=== PATIENT | female | born 1970 | race African-American/Black ===

== ENCOUNTER 2020-09-18 21:33 | Inpatient (IN) | payer BC, OTHER ==
[2020-09-18 23:20] LABS: BASO % 0.7 % (0-2.0); EOS % 4.4 % (0-4.5); HEMATOCRIT 38.1 % (32.4-45.2); HEMOGLOBIN 12.2 GM/dL (10.7-15.3); LYMPH % 22.9 % (8-40); MCH 23.8 pg (25.7-33.7); MEAN CELL VOLUME 74.4 fl (80-96); MEAN PLT VOLUME 8.6 fl (7.5-11.1); MONO % 9.1 % (3.8-10.2); NEUT % 62.9 % (42.8-82.8); PLATELET COUNT 220 K/MM3 (134-434); RBC 5.12 M/mm3 (3.60-5.2); RDW 16.1 % (11.6-15.6); WHITE BLOOD COUNT 6.4 K/mm3 (4.0-10.0)
[2020-09-18 23:30] LABS: INR 1.21 (0.83-1.09); PROTHROMBIN TIME (PATIENT) 14.8 SEC (9.7-13.0)
[2020-09-18 23:33] LABS: ACTIVATED PTT 30.6 SECONDS (25.2-36.5)
[2020-09-18 23:41] LABS: CALCIUM 9.5 mg/dL (8.5-10.1)
[2020-09-18 23:42] LABS: ALBUMIN 3.8 g/dl (3.4-5.0); BLOOD UREA NITROGEN 14.2 mg/dL (7-18)
[2020-09-18 23:45] LABS: CREATININE 1.3 mg/dL (0.55-1.3)
[2020-09-18 23:46] LABS: BILIRUBIN,TOTAL 0.5 mg/dL (0.2-1); TOT PROT 8.2 g/dl (6.4-8.2)
[2020-09-19] MEDS ORDERED: SENNOSIDES 8.6MG TABLET (FP) PO PRN (02:19)
[2020-09-19] MEDS ORDERED: DOCUSATE SODIUM 100 MG CAPSULE (FP) PO PRN (02:19)
[2020-09-19] MEDS ORDERED: levoFLOXacin 750 MG TABLET PO SCH (06:00)
[2020-09-19 07:13] LABS: BASO % 0.6 % (0-2.0); EOS % 5.3 % (0-4.5); HEMATOCRIT 36.4 % (32.4-45.2); HEMOGLOBIN 11.8 GM/dL (10.7-15.3); LYMPH % 21.8 % (8-40); MCHC 32.3 g/dl (32.0-36.0); MEAN CELL VOLUME 74.2 fl (80-96); MEAN PLT VOLUME 8.3 fl (7.5-11.1); MONO % 11.1 % (3.8-10.2); NEUT % 61.2 % (42.8-82.8); PLATELET COUNT 199 K/MM3 (134-434)
[2020-09-19 07:31] LABS: ALBUMIN 3.4 g/dl (3.4-5.0); BLOOD UREA NITROGEN 12.1 mg/dL (7-18)
[2020-09-19 07:32] LABS: CALCIUM 9.5 mg/dL (8.5-10.1)
[2020-09-19 07:33] LABS: MAGNESIUM 2.1 mg/dL (1.8-2.4)
[2020-09-19 07:36] LABS: CREATININE 1.2 mg/dL (0.55-1.3); PHOSPHOROUS 4.8 mg/dL (2.5-4.9)
[2020-09-19 07:37] LABS: BILIRUBIN,TOTAL 0.6 mg/dL (0.2-1); TOT PROT 7.2 g/dl (6.4-8.2)
[2020-09-19 07:38] LABS: CHOLESTEROL 208 mg/dL (50-200)
[2020-09-19 07:39] LABS: TRIGLYCERIDES 78 mg/dL (0-150)
[2020-09-19 07:40] LABS: LDL CHOLESTEROL (ONLY SJRH) 112 mg/dL (5-100)
[2020-09-19 07:41] LABS: HDL CHOLESTEROL 67 mg/dL (40-60)
[2020-09-19] MEDS ORDERED: HYDROCHLOROTHIAZIDE 12.5 MG CAPSULE (FP) PO SCH ×2 (10:00→22:00)
[2020-09-19] MEDS ORDERED: DOXYCYCLINE HYCLATE 100 MG CAPSULE PO SCH (10:00)
[2020-09-19] MEDS ORDERED: ENOXAPARIN NA (PORCINE) 40 MG/0.4 ML DISP.SYRIN SQ SCH ×2 (10:00)
[2020-09-19] MEDS ORDERED: LOSARTAN POTASSIUM 50 MG TABLET PO SCH ×2 (10:00→22:00)
[2020-09-19] MEDS ORDERED: LOSARTAN POTASSIUM 50 MG TABLET ONE (10:51)
[2020-09-19] MEDS ORDERED: DOXYCYCLINE HYCLATE 100 MG CAPSULE PO ONE (10:51)
[2020-09-19] MEDS ORDERED: PREGABALIN 100 MG CAPSULE ONE (10:51)
[2020-09-19] MEDS ORDERED: ENOXAPARIN NA (PORCINE) 40 MG/0.4 ML DISP.SYRIN SQ ONE (10:52)
[2020-09-19] MEDS: PREGABALIN 100 MG CAPSULE PO SCH ×2 (11:08→21:20)
[2020-09-19] MEDS: KETOCONAZOLE 2% CREAM - 60GM TUBE TP SCH (13:54)
[2020-09-20 08:32] LABS: HEMATOCRIT 35.6 % (32.4-45.2); HEMOGLOBIN 11.5 GM/dL (10.7-15.3); MCH 23.9 pg (25.7-33.7); MCHC 32.3 g/dl (32.0-36.0); MEAN CELL VOLUME 74.1 fl (80-96); MEAN PLT VOLUME 8.2 fl (7.5-11.1); PLATELET COUNT 190 K/MM3 (134-434); RBC 4.81 M/mm3 (3.60-5.2); RDW 16.1 % (11.6-15.6); WHITE BLOOD COUNT 4.5 K/mm3 (4.0-10.0)
[2020-09-20 08:51] LABS: CALCIUM 9.1 mg/dL (8.5-10.1)
[2020-09-20 08:52] LABS: ALBUMIN 3.4 g/dl (3.4-5.0); BLOOD UREA NITROGEN 13.1 mg/dL (7-18)
[2020-09-20] MEDS ORDERED: LIDOCAINE HCL 2% (20ML MULTI-DOSE VIAL) ONE (08:53)
[2020-09-20 08:55] LABS: CREATININE 1.2 mg/dL (0.55-1.3)
[2020-09-20 08:57] LABS: TOT PROT 7.2 g/dl (6.4-8.2)
[2020-09-20] MEDS: PREGABALIN 100 MG CAPSULE PO SCH ×2 (09:10→21:55)
[2020-09-20] MEDS ORDERED: ONDANSETRON 4 MG/2 ML VIAL IVPUSH PRN ×2 (09:19→11:37)
[2020-09-20] MEDS ORDERED: PROMETHAZINE HCL 25 MG/1 ML VIAL IVPUSH PRN ×2 (09:19→11:37)
[2020-09-20] MEDS ORDERED: MIDAZOLAM HCL 2 MG/2 ML SINGLE DOSE VIAL ONE ×2 (09:28→09:53)
[2020-09-20] MEDS ORDERED: LACTATED RINGERS SOLUTION 1,000 ML IV SCH ×2 (09:30→11:37)
[2020-09-20] MEDS ORDERED: LIDOCAINE HCL 2% (50ML VIAL) NR ONE (09:55)
[2020-09-20] MEDS ORDERED: ceFAZolin SODIUM 1 GM VIAL ONE (09:59)
[2020-09-20] MEDS: KETOCONAZOLE 2% CREAM - 60GM TUBE TP SCH (10:00)
[2020-09-20] MEDS ORDERED: BACITRACIN 50,000 UNITS VIAL NR ONE (10:08)
[2020-09-20] MEDS ORDERED: KETOROLAC TROMETHAMINE 30 MG/1 ML VIAL ONE (10:12)
[2020-09-20] MEDS ORDERED: ceFAZolin SODIUM 1 GM VIAL IVPB ONE (10:18)
[2020-09-20] MEDS ORDERED: METOPROLOL TARTRATE 5 MG/5 ML VIAL ONE (10:20)
[2020-09-20] MEDS ORDERED: BUPIVACAINE HCL/PF 0.5% (5 MG/ML) 30 ML VIAL IJ ONE ×2 (10:47)
[2020-09-20] MEDS ORDERED: SENNOSIDES 8.6MG TABLET (FP) PO PRN (11:37)
[2020-09-20] MEDS ORDERED: DOCUSATE SODIUM 100 MG CAPSULE (FP) PO PRN (11:37)
[2020-09-20] MEDS: LOSARTAN POTASSIUM 50 MG TABLET PO SCH (21:55)
[2020-09-20] MEDS ORDERED: HYDROCHLOROTHIAZIDE 12.5 MG CAPSULE (FP) PO SCH (22:00)
[2020-09-20] MEDS ORDERED: ACETAMINOPHEN 1000 MG/100 ML VIAL (NON FORMULARY) IVPB ONE (23:19)
[2020-09-21 08:28] LABS: HEMOGLOBIN 11.4 GM/dL (10.7-15.3); MCH 24.2 pg (25.7-33.7); MCHC 32.5 g/dl (32.0-36.0); MEAN CELL VOLUME 74.3 fl (80-96); MEAN PLT VOLUME 8.2 fl (7.5-11.1); PLATELET COUNT 195 K/MM3 (134-434); RBC 4.72 M/mm3 (3.60-5.2); RDW 16.1 % (11.6-15.6); WHITE BLOOD COUNT 3.8 K/mm3 (4.0-10.0)
[2020-09-21 08:47] LABS: ALBUMIN 3.1 g/dl (3.4-5.0); CALCIUM 8.6 mg/dL (8.5-10.1)
[2020-09-21 08:48] LABS: BLOOD UREA NITROGEN 15.5 mg/dL (7-18)
[2020-09-21 08:50] LABS: CREATININE 1.2 mg/dL (0.55-1.3)
[2020-09-21 08:52] LABS: BILIRUBIN,TOTAL 0.6 mg/dL (0.2-1); TOT PROT 6.6 g/dl (6.4-8.2)
[2020-09-21] MEDS: PREGABALIN 100 MG CAPSULE PO SCH ×2 (10:55→21:39)
[2020-09-21] MEDS ORDERED: ACETAMINOPHEN 325 MG TABLET (FP) PO ONE (17:54)
[2020-09-21] MEDS: LOSARTAN POTASSIUM 50 MG TABLET PO SCH (21:39)
[2020-09-21 23:44] VITALS: BMI 65.2
[2020-09-22 08:23] LABS: HEMATOCRIT 33.3 % (32.4-45.2); MCH 24.3 pg (25.7-33.7); MCHC 33.1 g/dl (32.0-36.0); MEAN CELL VOLUME 73.5 fl (80-96); MEAN PLT VOLUME 8.1 fl (7.5-11.1); PLATELET COUNT 201 K/MM3 (134-434); RBC 4.53 M/mm3 (3.60-5.2); RDW 16.1 % (11.6-15.6); WHITE BLOOD COUNT 4.9 K/mm3 (4.0-10.0)
[2020-09-22 08:48] LABS: CALCIUM 8.7 mg/dL (8.5-10.1)
[2020-09-22 08:49] LABS: ALBUMIN 3.2 g/dl (3.4-5.0); BLOOD UREA NITROGEN 15.7 mg/dL (7-18)
[2020-09-22 08:52] LABS: CREATININE 1.1 mg/dL (0.55-1.3)
[2020-09-22 08:54] LABS: BILIRUBIN,TOTAL 0.5 mg/dL (0.2-1); TOT PROT 6.8 g/dl (6.4-8.2)
[2020-09-22] MEDS: PREGABALIN 100 MG CAPSULE PO SCH ×2 (10:05→21:42)
[2020-09-22] MEDS: ACETAMINOPHEN 325 MG TABLET (FP) PO PRN ×2 (13:57→21:47)
[2020-09-22] MEDS: LOSARTAN POTASSIUM 50 MG TABLET PO SCH (21:45)
[2020-09-23 07:43] LABS: HEMATOCRIT 32.8 % (32.4-45.2); HEMOGLOBIN 10.8 GM/dL (10.7-15.3); MCH 24.2 pg (25.7-33.7); MCHC 33.1 g/dl (32.0-36.0); MEAN CELL VOLUME 73.2 fl (80-96); PLATELET COUNT 208 K/MM3 (134-434); RBC 4.48 M/mm3 (3.60-5.2); RDW 16.2 % (11.6-15.6); WHITE BLOOD COUNT 4.7 K/mm3 (4.0-10.0)
[2020-09-23 07:48] LABS: ALBUMIN 3.2 g/dl (3.4-5.0); BLOOD UREA NITROGEN 15.5 mg/dL (7-18); CALCIUM 8.8 mg/dL (8.5-10.1)
[2020-09-23 07:52] LABS: CREATININE 1.1 mg/dL (0.55-1.3)
[2020-09-23 07:53] LABS: BILIRUBIN,TOTAL 0.5 mg/dL (0.2-1); TOT PROT 6.8 g/dl (6.4-8.2)
[2020-09-23] MEDS: PREGABALIN 100 MG CAPSULE PO SCH (09:39)
[2020-09-23] MEDS ORDERED: FUROSEMIDE 20 MG TABLET (FP) PO SCH (10:00)
[2020-09-23] MEDS: ACETAMINOPHEN 325 MG TABLET (FP) PO PRN (11:27)
[2020-09-23 14:11] VITALS: BP 117/88; PULSE 85; TEMP 98.2
== END 2020-09-23 15:27 | disposition home or self-care (01) | DRG 504 ==
LOC: JER 21:33 → JERBED 22:48 → J6S 09-19 11:24
PROVIDERS: ADMIT Hospitalist; ATTEND Internal Medicine
PROC: 0SRQ0JZ Replacement of Left Toe Phalangeal Joint with Synthetic Substitute, Open Approach (ICD-10-PCS; 2020-09-20)
PROC: 0Y6U0Z3 Detachment at Left 3rd Toe, Low, Open Approach (ICD-10-PCS; principal; 2020-09-20 09:30)
DX: M86.8X7 Other osteomyelitis, ankle and foot (principal); L97.528 Non-pressure chronic ulcer of other part of left foot with other specified severity; Z68.44 Body mass index [BMI] 60.0-69.9, adult; M20.42 Other hammer toe(s) (acquired), left foot; I10 Essential (primary) hypertension; G62.9 Polyneuropathy, unspecified; I73.9 Peripheral vascular disease, unspecified; E66.01 Morbid (severe) obesity due to excess calories; G47.33 Obstructive sleep apnea (adult) (pediatric); R73.03 Prediabetes
CPT/HCPCS: 36415; 71046-TC-FY; 73630-TC-LT; 80053; 80061; 82728; 83036; 83540; 83550; 83721; 83735; 84100; 84207; 84436; 84443; 85025; 85027; 85610; 85730; 86850; 86900; 86901; 87070; 87205; 94660; 94760; 99285-25; C9803; J0131; U0003; U0005

== ENCOUNTER 2021-07-06 09:19 | Inpatient (IN) | payer BC, OTHER ==
[2021-07-06 13:57] LABS: BASO % 1.1 % (0-2.0); EOS % 3.6 % (0-4.5); HEMATOCRIT 40.8 % (32.4-45.2); HEMOGLOBIN 12.9 GM/dL (10.7-15.3); LYMPH % 29.4 % (8-40); MCH 23.8 pg (25.7-33.7); MCHC 31.7 g/dl (32.0-36.0); MEAN CELL VOLUME 75.3 fl (80-96); MEAN PLT VOLUME 8.1 fl (7.5-11.1); MONO % 9.2 % (3.8-10.2); NEUT % 56.7 % (42.8-82.8); PLATELET COUNT 311 10^3/uL (134-434); RBC 5.41 M/mm3 (3.60-5.2); RDW 15.4 % (11.6-15.6); WHITE BLOOD COUNT 4.8 K/mm3 (4.0-10.0)
[2021-07-06 14:25] LABS: ALBUMIN 3.8 g/dl (3.4-5.0); CALCIUM 9.3 mg/dL (8.5-10.1)
[2021-07-06 14:30] LABS: BILIRUBIN,TOTAL 0.6 mg/dL (0.2-1); TOT PROT 8.1 g/dl (6.4-8.2)
[2021-07-06] MEDS ORDERED: VANCOMYCIN 1 GM in D5W (PRE-DOCKED) 1,000 MG/250 ML IVPB ONE (15:39)
[2021-07-06] MEDS ORDERED: VANCOMYCIN 1 GRAM (PRE-DOCKED) 1,000 MG/250 ML BAG IVPB ONE (16:49)
[2021-07-06] MEDS ORDERED: PIPERACILLIN/TAZOBACTAM 4.5 GM VIAL IVPB ONE (21:45)
[2021-07-06] MEDS ORDERED: DEXTROSE 5%-WATER 100 ML IVPB ONE (21:45)
[2021-07-06] MEDS: PREGABALIN 100 MG CAPSULE PO SCH (21:55)
[2021-07-06] MEDS: HEPARIN NA (PORCINE) 5,000 UNITS/ML 1ML VIAL SQ SCH (21:55)
[2021-07-06] MEDS: LOSARTAN POTASSIUM 50 MG TABLET PO SCH (21:55)
[2021-07-06] MEDS: ALBUTEROL SO4 HFA INHALER IH PRN (22:09)
[2021-07-06] MEDS: PIPERACILLIN/TAZOB 4.5 GM 4.5 GM in DEXTROSE 5%-WATER 100 ML IVPB SCH (23:00)
[2021-07-07] MEDS ORDERED: DEXTROSE 5%-WATER 100 ML IVPB ONE ×3 (01:05→19:15)
[2021-07-07] MEDS ORDERED: PIPERACILLIN/TAZOBACTAM 4.5 GM VIAL IVPB ONE ×3 (01:05→19:15)
[2021-07-07] MEDS: PIPERACILLIN/TAZOB 4.5 GM 4.5 GM in DEXTROSE 5%-WATER 100 ML IVPB SCH ×3 (01:27→19:21)
[2021-07-07] MEDS ORDERED: VANCOMYCIN/WATER 1,250 MG/250 ML BAG IVPB SCH (02:00)
[2021-07-07 03:06] VITALS: BMI 63.1
[2021-07-07] MEDS: VANCOMYCIN/WATER BAGS 1,250 MG/250 ML BAG IVPB SCH ×2 (03:37→15:04)
[2021-07-07] MEDS: HEPARIN NA (PORCINE) 5,000 UNITS/ML 1ML VIAL SQ SCH ×3 (06:17→21:36)
[2021-07-07] MEDS: ALBUTEROL SO4 HFA INHALER IH PRN ×2 (08:04→21:36)
[2021-07-07 09:51] LABS: HEMOGLOBIN 12.4 GM/dL (10.7-15.3); MCHC 31.7 g/dl (32.0-36.0); MEAN CELL VOLUME 75.5 fl (80-96); MEAN PLT VOLUME 8.5 fl (7.5-11.1); PLATELET COUNT 330 10^3/uL (134-434); RBC 5.16 M/mm3 (3.60-5.2); RDW 15.2 % (11.6-15.6); WHITE BLOOD COUNT 4.1 K/mm3 (4.0-10.0)
[2021-07-07 10:05] LABS: BLOOD UREA NITROGEN 11.5 mg/dL (7-18); CALCIUM 9.3 mg/dL (8.5-10.1); MAGNESIUM 2.2 mg/dL (1.8-2.4)
[2021-07-07 10:09] LABS: PHOSPHOROUS 3.6 mg/dL (2.5-4.9)
[2021-07-07] MEDS: FUROSEMIDE 20 MG TABLET (FP) PO SCH (11:03)
[2021-07-07] MEDS: PREGABALIN 100 MG CAPSULE PO SCH ×2 (15:04→21:36)
[2021-07-07] MEDS: LOSARTAN POTASSIUM 50 MG TABLET PO SCH (21:36)
[2021-07-08] MEDS ORDERED: PIPERACILLIN/TAZOBACTAM 4.5 GM VIAL IVPB ONE ×3 (00:56→16:46)
[2021-07-08] MEDS ORDERED: DEXTROSE 5%-WATER 100 ML IVPB ONE ×3 (00:57→16:46)
[2021-07-08] MEDS: VANCOMYCIN/WATER BAGS 1,250 MG/250 ML BAG IVPB SCH ×2 (01:18→14:36)
[2021-07-08] MEDS: PIPERACILLIN/TAZOB 4.5 GM 4.5 GM in DEXTROSE 5%-WATER 100 ML IVPB SCH ×3 (03:08→17:29)
[2021-07-08] MEDS: HEPARIN NA (PORCINE) 5,000 UNITS/ML 1ML VIAL SQ SCH ×3 (05:47→21:04)
[2021-07-08 08:56] LABS: BASO % 0.9 % (0-2.0); EOS % 4.1 % (0-4.5); HEMATOCRIT 38.7 % (32.4-45.2); HEMOGLOBIN 12.7 GM/dL (10.7-15.3); LYMPH % 22.2 % (8-40); MCH 24.5 pg (25.7-33.7); MCHC 32.8 g/dl (32.0-36.0); MEAN CELL VOLUME 74.5 fl (80-96); MEAN PLT VOLUME 7.9 fl (7.5-11.1); MONO % 8.3 % (3.8-10.2); NEUT % 64.5 % (42.8-82.8); PLATELET COUNT 292 10^3/uL (134-434); RBC 5.19 M/mm3 (3.60-5.2); RDW 14.9 % (11.6-15.6); WHITE BLOOD COUNT 4.1 K/mm3 (4.0-10.0)
[2021-07-08 09:14] LABS: CALCIUM 9.2 mg/dL (8.5-10.1)
[2021-07-08 09:15] LABS: ALBUMIN 3.5 g/dl (3.4-5.0); MAGNESIUM 2.2 mg/dL (1.8-2.4)
[2021-07-08] MEDS: FUROSEMIDE 20 MG TABLET (FP) PO SCH (09:17)
[2021-07-08] MEDS: PREGABALIN 100 MG CAPSULE PO SCH ×2 (09:17→21:02)
[2021-07-08 09:18] LABS: CREATININE 1.1 mg/dL (0.55-1.3)
[2021-07-08 09:19] LABS: TOT PROT 7.2 g/dl (6.4-8.2)
[2021-07-08 09:20] LABS: BILIRUBIN,TOTAL 0.5 mg/dL (0.2-1)
[2021-07-08 11:58] LABS: ERYTHROCYTE SEDIMENTATION RATE 25 mm/hr (0-30)
[2021-07-08] MEDS: LOSARTAN POTASSIUM 50 MG TABLET PO SCH (22:30)
[2021-07-09] MEDS ORDERED: DEXTROSE 5%-WATER 100 ML IVPB ONE ×3 (00:22→17:45)
[2021-07-09] MEDS ORDERED: PIPERACILLIN/TAZOBACTAM 4.5 GM VIAL IVPB ONE ×3 (00:22→17:45)
[2021-07-09] MEDS: PIPERACILLIN/TAZOB 4.5 GM 4.5 GM in DEXTROSE 5%-WATER 100 ML IVPB SCH ×3 (01:08→17:49)
[2021-07-09] MEDS: VANCOMYCIN/WATER BAGS 1,250 MG/250 ML BAG IVPB SCH ×2 (01:47→14:40)
[2021-07-09] MEDS: HEPARIN NA (PORCINE) 5,000 UNITS/ML 1ML VIAL SQ SCH ×3 (05:28→21:13)
[2021-07-09 09:05] LABS: EOS % 4.6 % (0-4.5); HEMATOCRIT 38.9 % (32.4-45.2); HEMOGLOBIN 12.7 GM/dL (10.7-15.3); INR 1.19 (0.83-1.09); LYMPH % 22.6 % (8-40); MCH 24.4 pg (25.7-33.7); MCHC 32.6 g/dl (32.0-36.0); MEAN CELL VOLUME 74.8 fl (80-96); MEAN PLT VOLUME 7.9 fl (7.5-11.1); MONO % 8.7 % (3.8-10.2); NEUT % 63.1 % (42.8-82.8); PLATELET COUNT 309 10^3/uL (134-434); PROTHROMBIN TIME (PATIENT) 13.7 SEC (9.7-13.0); WHITE BLOOD COUNT 3.9 K/mm3 (4.0-10.0)
[2021-07-09 09:27] LABS: ALBUMIN 3.5 g/dl (3.4-5.0); BLOOD UREA NITROGEN 10.9 mg/dL (7-18); MAGNESIUM 2.2 mg/dL (1.8-2.4)
[2021-07-09 09:30] LABS: BILIRUBIN,TOTAL 0.5 mg/dL (0.2-1); CREATININE 1.1 mg/dL (0.55-1.3); TOT PROT 7.3 g/dl (6.4-8.2)
[2021-07-09] MEDS: FUROSEMIDE 20 MG TABLET (FP) PO SCH (10:41)
[2021-07-09] MEDS: PREGABALIN 100 MG CAPSULE PO SCH ×2 (10:42→21:14)
[2021-07-09] MEDS: LOSARTAN POTASSIUM 50 MG TABLET PO SCH (21:13)
[2021-07-10] MEDS ORDERED: PIPERACILLIN/TAZOBACTAM 4.5 GM VIAL IVPB ONE ×3 (01:21→17:21)
[2021-07-10] MEDS ORDERED: DEXTROSE 5%-WATER 100 ML IVPB ONE ×3 (01:21→17:21)
[2021-07-10] MEDS: PIPERACILLIN/TAZOB 4.5 GM 4.5 GM in DEXTROSE 5%-WATER 100 ML IVPB SCH ×3 (01:33→21:10)
[2021-07-10] MEDS: VANCOMYCIN/WATER BAGS 1,250 MG/250 ML BAG IVPB SCH ×2 (02:57→14:45)
[2021-07-10] MEDS: HEPARIN NA (PORCINE) 5,000 UNITS/ML 1ML VIAL SQ SCH ×3 (06:55→21:11)
[2021-07-10 07:59] LABS: BASO % 0.9 % (0-2.0); EOS % 4.6 % (0-4.5); HEMATOCRIT 37.9 % (32.4-45.2); HEMOGLOBIN 12.2 GM/dL (10.7-15.3); LYMPH % 23.2 % (8-40); MCH 24.4 pg (25.7-33.7); MCHC 32.4 g/dl (32.0-36.0); MEAN CELL VOLUME 75.5 fl (80-96); MEAN PLT VOLUME 7.9 fl (7.5-11.1); NEUT % 60.3 % (42.8-82.8); PLATELET COUNT 280 10^3/uL (134-434); RBC 5.02 M/mm3 (3.60-5.2); RDW 15.3 % (11.6-15.6); WHITE BLOOD COUNT 4.3 K/mm3 (4.0-10.0)
[2021-07-10 08:22] LABS: ALBUMIN 3.3 g/dl (3.4-5.0); BLOOD UREA NITROGEN 11.9 mg/dL (7-18); MAGNESIUM 2.4 mg/dL (1.8-2.4)
[2021-07-10 08:25] LABS: CREATININE 1.1 mg/dL (0.55-1.3)
[2021-07-10 08:27] LABS: BILIRUBIN,TOTAL 0.8 mg/dL (0.2-1); TOT PROT 6.9 g/dl (6.4-8.2)
[2021-07-10] MEDS: PREGABALIN 100 MG CAPSULE PO SCH ×2 (09:29→21:11)
[2021-07-10] MEDS: FUROSEMIDE 20 MG TABLET (FP) PO SCH (09:29)
[2021-07-10] MEDS: LOSARTAN POTASSIUM 50 MG TABLET PO SCH (21:11)
[2021-07-11] MEDS ORDERED: PIPERACILLIN/TAZOBACTAM 4.5 GM VIAL IVPB ONE ×3 (02:04→10:21)
[2021-07-11] MEDS ORDERED: DEXTROSE 5%-WATER 100 ML IVPB ONE ×3 (02:05→10:21)
[2021-07-11] MEDS: PIPERACILLIN/TAZOB 4.5 GM 4.5 GM in DEXTROSE 5%-WATER 100 ML IVPB SCH ×3 (02:47→17:44)
[2021-07-11] MEDS: VANCOMYCIN/WATER BAGS 1,250 MG/250 ML BAG IVPB SCH ×2 (03:00→14:17)
[2021-07-11] MEDS: HEPARIN NA (PORCINE) 5,000 UNITS/ML 1ML VIAL SQ SCH ×3 (05:15→22:17)
[2021-07-11] MEDS: FUROSEMIDE 20 MG TABLET (FP) PO SCH (09:59)
[2021-07-11] MEDS: PREGABALIN 100 MG CAPSULE PO SCH ×2 (09:59→22:17)
[2021-07-11 10:00] LABS: BASO % 0.8 % (0-2.0); EOS % 3.1 % (0-4.5); HEMOGLOBIN 12.2 GM/dL (10.7-15.3); LYMPH % 18.6 % (8-40); MCH 24.1 pg (25.7-33.7); MEAN CELL VOLUME 75.3 fl (80-96); MEAN PLT VOLUME 8.2 fl (7.5-11.1); MONO % 7.8 % (3.8-10.2); NEUT % 69.7 % (42.8-82.8); PLATELET COUNT 313 10^3/uL (134-434); RBC 5.05 M/mm3 (3.60-5.2); RDW 14.9 % (11.6-15.6); WHITE BLOOD COUNT 4.4 K/mm3 (4.0-10.0)
[2021-07-11 10:39] LABS: CALCIUM 9.3 mg/dL (8.5-10.1)
[2021-07-11 10:40] LABS: ALBUMIN 3.5 g/dl (3.4-5.0); MAGNESIUM 2.1 mg/dL (1.8-2.4)
[2021-07-11 10:41] LABS: BLOOD UREA NITROGEN 12.4 mg/dL (7-18)
[2021-07-11 10:44] LABS: BILIRUBIN,TOTAL 0.5 mg/dL (0.2-1); TOT PROT 7.1 g/dl (6.4-8.2)
[2021-07-11] MEDS: LOSARTAN POTASSIUM 50 MG TABLET PO SCH (22:17)
[2021-07-12] MEDS ORDERED: PIPERACILLIN/TAZOBACTAM 4.5 GM VIAL IVPB ONE ×3 (00:19→16:23)
[2021-07-12] MEDS ORDERED: DEXTROSE 5%-WATER 100 ML IVPB ONE ×3 (00:20→16:23)
[2021-07-12] MEDS: PIPERACILLIN/TAZOB 4.5 GM 4.5 GM in DEXTROSE 5%-WATER 100 ML IVPB SCH ×3 (01:15→17:53)
[2021-07-12] MEDS: VANCOMYCIN/WATER BAGS 1,250 MG/250 ML BAG IVPB SCH ×2 (02:23→13:16)
[2021-07-12] MEDS: HEPARIN NA (PORCINE) 5,000 UNITS/ML 1ML VIAL SQ SCH ×3 (06:06→21:47)
[2021-07-12 09:19] LABS: EOS % 2.9 % (0-4.5); HEMATOCRIT 37.9 % (32.4-45.2); HEMOGLOBIN 12.2 GM/dL (10.7-15.3); LYMPH % 18.1 % (8-40); MCH 23.9 pg (25.7-33.7); MCHC 32.1 g/dl (32.0-36.0); MEAN CELL VOLUME 74.5 fl (80-96); MONO % 8.7 % (3.8-10.2); NEUT % 69.3 % (42.8-82.8); PLATELET COUNT 286 10^3/uL (134-434); RBC 5.08 M/mm3 (3.60-5.2); RDW 15.3 % (11.6-15.6); WHITE BLOOD COUNT 4.6 K/mm3 (4.0-10.0)
[2021-07-12] MEDS: FUROSEMIDE 20 MG TABLET (FP) PO SCH (09:37)
[2021-07-12] MEDS: PREGABALIN 100 MG CAPSULE PO SCH ×2 (09:37→21:47)
[2021-07-12 09:51] LABS: ALBUMIN 3.7 g/dl (3.4-5.0); BLOOD UREA NITROGEN 11.7 mg/dL (7-18); CALCIUM 9.6 mg/dL (8.5-10.1); MAGNESIUM 2.2 mg/dL (1.8-2.4)
[2021-07-12 09:54] LABS: CREATININE 0.9 mg/dL (0.55-1.3)
[2021-07-12 09:55] LABS: BILIRUBIN,TOTAL 0.4 mg/dL (0.2-1)
[2021-07-12 09:56] LABS: TOT PROT 7.5 g/dl (6.4-8.2)
[2021-07-12] MEDS: LOSARTAN POTASSIUM 50 MG TABLET PO SCH (21:47)
[2021-07-13] MEDS ORDERED: PIPERACILLIN/TAZOBACTAM 4.5 GM VIAL IVPB ONE ×3 (00:12→16:55)
[2021-07-13] MEDS ORDERED: DEXTROSE 5%-WATER 100 ML IVPB ONE ×3 (00:12→16:55)
[2021-07-13] MEDS: PIPERACILLIN/TAZOB 4.5 GM 4.5 GM in DEXTROSE 5%-WATER 100 ML IVPB SCH ×3 (01:07→17:40)
[2021-07-13] MEDS: VANCOMYCIN/WATER BAGS 1,250 MG/250 ML BAG IVPB SCH ×2 (01:10→15:29)
[2021-07-13] MEDS: HEPARIN NA (PORCINE) 5,000 UNITS/ML 1ML VIAL SQ SCH ×3 (06:34→21:55)
[2021-07-13 08:49] LABS: BASO % 1.1 % (0-2.0); EOS % 3.1 % (0-4.5); HEMATOCRIT 36.2 % (32.4-45.2); HEMOGLOBIN 11.8 GM/dL (10.7-15.3); LYMPH % 24.1 % (8-40); MCH 24.6 pg (25.7-33.7); MCHC 32.7 g/dl (32.0-36.0); MEAN CELL VOLUME 75.1 fl (80-96); MONO % 11.9 % (3.8-10.2); NEUT % 59.8 % (42.8-82.8); PLATELET COUNT 264 10^3/uL (134-434); RBC 4.82 M/mm3 (3.60-5.2); RDW 15.3 % (11.6-15.6); WHITE BLOOD COUNT 3.9 K/mm3 (4.0-10.0)
[2021-07-13 09:06] LABS: BLOOD UREA NITROGEN 12.8 mg/dL (7-18)
[2021-07-13 09:08] LABS: ALBUMIN 3.4 g/dl (3.4-5.0); BILIRUBIN,TOTAL 0.8 mg/dL (0.2-1); TOT PROT 7.2 g/dl (6.4-8.2)
[2021-07-13 09:10] LABS: CALCIUM 9.2 mg/dL (8.5-10.1)
[2021-07-13] MEDS: FUROSEMIDE 20 MG TABLET (FP) PO SCH (09:43)
[2021-07-13] MEDS: PREGABALIN 100 MG CAPSULE PO SCH ×2 (09:43→21:56)
[2021-07-13 21:36] VITALS: TEMP 98.4
[2021-07-13] MEDS: LOSARTAN POTASSIUM 50 MG TABLET PO SCH (21:54)
[2021-07-14] MEDS ORDERED: DEXTROSE 5%-WATER 100 ML IVPB ONE ×2 (01:29→09:25)
[2021-07-14] MEDS ORDERED: PIPERACILLIN/TAZOBACTAM 4.5 GM VIAL IVPB ONE ×2 (01:29→09:25)
[2021-07-14] MEDS: PIPERACILLIN/TAZOB 4.5 GM 4.5 GM in DEXTROSE 5%-WATER 100 ML IVPB SCH ×2 (01:54→09:27)
[2021-07-14] MEDS: HEPARIN NA (PORCINE) 5,000 UNITS/ML 1ML VIAL SQ SCH ×2 (06:37→15:30)
[2021-07-14 07:09] VITALS: BP 133/71
[2021-07-14 08:10] VITALS: PULSE 65
[2021-07-14] MEDS: PREGABALIN 100 MG CAPSULE PO SCH (09:29)
[2021-07-14] MEDS: FUROSEMIDE 20 MG TABLET (FP) PO SCH (09:29)
== END 2021-07-14 18:05 | disposition home or self-care (01) | DRG 988 ==
LOC: JER 09:19 → JERBED 15:55 → J7W 20:49
PROVIDERS: ADMIT Internal Medicine; ATTEND Nurse Practitioner Acute Care
PROC: 0QBQ3ZX Excision of Right Toe Phalanx, Percutaneous Approach, Diagnostic (ICD-10-PCS; principal; 2021-07-11)
DX: E11.69 Type 2 diabetes mellitus with other specified complication (principal); E11.52 Type 2 diabetes mellitus with diabetic peripheral angiopathy with gangrene; I96 Gangrene, not elsewhere classified; Z68.44 Body mass index [BMI] 60.0-69.9, adult; L03.115 Cellulitis of right lower limb; M86.8X7 Other osteomyelitis, ankle and foot; I10 Essential (primary) hypertension; J45.909 Unspecified asthma, uncomplicated; G47.33 Obstructive sleep apnea (adult) (pediatric); B35.1 Tinea unguium; E66.01 Morbid (severe) obesity due to excess calories; Z98.84 Bariatric surgery status; Z89.421 Acquired absence of other right toe(s); Z99.89 Dependence on other enabling machines and devices; B95.7 Other staphylococcus as the cause of diseases classified elsewhere
CPT/HCPCS: 36415; 73630-TC-RT-FY; 80048; 80053; 83036; 83735; 84100; 85025; 85027; 85610; 85651; 86140; 87040; 87070; 87075; 87186; 87205; 94010; 94660; 97116-GP; 97161-GP; 99285-25; C9803; G0480; J1644; U0003; U0005

== ENCOUNTER 2021-07-27 15:22 | Emergency (ER) | payer BC, OTHER ==
[2021-07-27 15:36] VITALS: TEMP 97.3; BMI 62.4
[2021-07-27 18:52] VITALS: BP 133/81; PULSE 62
== END 2021-07-27 19:15 | disposition home or self-care (01) ==
LOC: JER 15:22
DX: M25.561 Pain in right knee (principal)
CPT/HCPCS: 73562-TC-RT-FY; 93971-TC; 99284-25

== ENCOUNTER 2023-02-08 12:06 | Inpatient (IN) | payer BC ==
[2023-02-08 12:18] VITALS: BMI 57.4
[2023-02-08 14:26] LABS: BASO % 0.7 % (0-2.0); EOS % 3.2 % (0-4.5); HEMATOCRIT 35.9 % (32.4-45.2); LYMPH % 19.8 % (8-40); MCHC 33.4 g/dl (32.0-36.0); MEAN CELL VOLUME 71.8 fl (80-96); MEAN PLT VOLUME 7.4 fl (7.5-11.1); MONO % 9.1 % (3.8-10.2); NEUT % 67.2 % (42.8-82.8); PLATELET COUNT 364 10^3/uL (134-434); WHITE BLOOD COUNT 6.6 K/mm3 (4.0-10.0)
[2023-02-08 14:39] LABS: INR 1.16 (0.83-1.09); PROTHROMBIN TIME (PATIENT) 13.4 SEC (9.7-13.0)
[2023-02-08 14:42] LABS: ACTIVATED PTT 29.8 SECONDS (25.2-36.5)
[2023-02-08 14:46] LABS: POTASSIUM 3.8 mmol/L (3.5-5.1)
[2023-02-08 14:48] LABS: CALCIUM 9.3 mg/dL (8.5-10.1)
[2023-02-08 14:49] LABS: ALBUMIN 3.6 g/dl (3.4-5.0); BLOOD UREA NITROGEN 12.9 mg/dL (7-18)
[2023-02-08 14:52] LABS: CREATININE 0.9 mg/dL (0.55-1.3)
[2023-02-08 14:54] LABS: BILIRUBIN,TOTAL 0.6 mg/dL (0.2-1); TOT PROT 8.3 g/dl (6.4-8.2)
[2023-02-08 15:17] LABS: ERYTHROCYTE SEDIMENTATION RATE 44 mm/hr (0-30)
[2023-02-08] MEDS ORDERED: PIPERACILLIN/TAZOB 4.5 GM 4.5 GM/100 ML BAG IVPB ONE ×2 (15:50→16:00)
[2023-02-08] MEDS ORDERED: VANCOMYCIN 1,000 MG in DEXTROSE 5%-WATER - 250 ML IVPB ONE (15:50)
[2023-02-08] MEDS ORDERED: VANCOMYCIN 1 GRAM (PRE-DOCKED) 1,000 MG/250 ML BAG IVPB ONE (16:01)
[2023-02-08] MEDS ORDERED: IBUPROFEN 600 MG TABLET (FP) PO PRN (16:58)
[2023-02-08] MEDS ORDERED: CEFEPIME HCL 2 GM VIAL (RESTRICTED TO ID) IVPB SCH (17:00)
[2023-02-08] MEDS ORDERED: ALBUTEROL SO4 HFA INHALER IH PRN ×2 (17:03→17:13)
[2023-02-08] MEDS ORDERED: CEFEPIME 2 GM in DEXTROSE 5%-WATER 100 ML IVPB SCH (17:30)
[2023-02-08] MEDS: CEFEPIME 2 GM in DEXTROSE 5%-WATER 100 ML IVPB SCH (18:55)
[2023-02-08] MEDS ORDERED: HEPARIN NA (PORCINE) 5,000 UNITS/ML 1ML VIAL ONE (20:59)
[2023-02-08] MEDS ORDERED: LOSARTAN POTASSIUM 50 MG TABLET ONE (20:59)
[2023-02-08] MEDS ORDERED: VANCOMYCIN 1 GRAM (PRE-DOCKED) 2,000 MG/500 ML BAG IVPB ONE (20:59)
[2023-02-08] MEDS ORDERED: PREGABALIN 100 MG CAPSULE ONE (20:59)
[2023-02-08] MEDS: LOSARTAN POTASSIUM 50 MG TABLET PO SCH (21:09)
[2023-02-08] MEDS: HEPARIN NA (PORCINE) 5,000 UNITS/ML 1ML VIAL SQ SCH (21:10)
[2023-02-08] MEDS: VANCOMYCIN/WATER 2 GRAMS 2,000 MG/400 ML PIGGYBACK IVPB SCH (21:10)
[2023-02-08] MEDS: PREGABALIN 100 MG CAPSULE PO SCH (21:10)
[2023-02-08] MEDS ORDERED: HEPARIN NA (PORCINE) 5,000 UNITS/ML 1ML VIAL SQ SCH (22:00)
[2023-02-08] MEDS ORDERED: VANCOMYCIN/WATER 2 GRAMS 2,000 MG/400 ML PIGGYBACK IVPB SCH (22:00)
[2023-02-08] MEDS ORDERED: VANCOMYCIN/WATER 1250 MG 1,250 MG/250 ML BAG IVPB SCH (22:00)
[2023-02-09] MEDS: CEFEPIME 2 GM in DEXTROSE 5%-WATER 100 ML IVPB SCH ×2 (06:02→23:57)
[2023-02-09] MEDS: HEPARIN NA (PORCINE) 5,000 UNITS/ML 1ML VIAL SQ SCH ×3 (06:02→21:51)
[2023-02-09] MEDS: FUROSEMIDE 20 MG TABLET (FP) PO SCH (10:01)
[2023-02-09] MEDS: PREGABALIN 100 MG CAPSULE PO SCH ×2 (10:01→21:51)
[2023-02-09 10:05] LABS: BASO % 0.7 % (0-2.0); EOS % 3.1 % (0-4.5); HEMATOCRIT 36.2 % (32.4-45.2); HEMOGLOBIN 11.6 GM/dL (10.7-15.3); MCH 23.5 pg (25.7-33.7); MEAN CELL VOLUME 73.5 fl (80-96); MEAN PLT VOLUME 7.8 fl (7.5-11.1); MONO % 7.7 % (3.8-10.2); NEUT % 71.5 % (42.8-82.8); PLATELET COUNT 349 10^3/uL (134-434); RBC 4.93 M/mm3 (3.60-5.2); RDW 16.4 % (11.6-15.6); WHITE BLOOD COUNT 5.5 K/mm3 (4.0-10.0)
[2023-02-09 10:12] LABS: POTASSIUM 4.3 mmol/L (3.5-5.1)
[2023-02-09 10:25] LABS: CALCIUM 8.9 mg/dL (8.5-10.1)
[2023-02-09 10:26] LABS: ALBUMIN 3.3 g/dl (3.4-5.0); MAGNESIUM 2.3 mg/dL (1.8-2.4)
[2023-02-09 10:29] LABS: CREATININE 0.9 mg/dL (0.55-1.3); PHOSPHOROUS 3.3 mg/dL (2.5-4.9)
[2023-02-09 10:31] LABS: BILIRUBIN,TOTAL 0.5 mg/dL (0.2-1); TOT PROT 7.8 g/dl (6.4-8.2)
[2023-02-09] MEDS: VANCOMYCIN/WATER 2 GRAMS 2,000 MG/400 ML PIGGYBACK IVPB SCH ×2 (11:49→21:52)
[2023-02-09] MEDS ORDERED: CEFEPIME 2 GM in DEXTROSE 5%-WATER 100 ML IVPB SCH (15:14)
[2023-02-09] MEDS: CLINDAMYCIN 900 MG PREMIX IVPB 900 MG/50 ML BAG IVPB SCH (17:54)
[2023-02-09] MEDS: LOSARTAN POTASSIUM 50 MG TABLET PO SCH (21:52)
[2023-02-09] MEDS ORDERED: CEFEPIME HCL 2 GM VIAL (RESTRICTED TO ID) ONE (23:52)
[2023-02-10] MEDS: CLINDAMYCIN 900 MG PREMIX IVPB 900 MG/50 ML BAG IVPB SCH ×3 (01:55→18:12)
[2023-02-10] MEDS: HEPARIN NA (PORCINE) 5,000 UNITS/ML 1ML VIAL SQ SCH ×3 (05:55→21:49)
[2023-02-10] MEDS: CEFEPIME 2 GM in DEXTROSE 5%-WATER 100 ML IVPB SCH ×3 (06:00→23:30)
[2023-02-10] MEDS: PREGABALIN 100 MG CAPSULE PO SCH ×2 (09:19→21:49)
[2023-02-10] MEDS: FUROSEMIDE 20 MG TABLET (FP) PO SCH (09:19)
[2023-02-10] MEDS: VANCOMYCIN/WATER 2 GRAMS 2,000 MG/400 ML PIGGYBACK IVPB SCH (11:25)
[2023-02-10] MEDS: LOSARTAN POTASSIUM 50 MG TABLET PO SCH (21:49)
[2023-02-11] MEDS: CLINDAMYCIN 900 MG PREMIX IVPB 900 MG/50 ML BAG IVPB SCH ×3 (01:26→18:43)
[2023-02-11] MEDS: CEFEPIME 2 GM in DEXTROSE 5%-WATER 100 ML IVPB SCH ×2 (06:27→14:08)
[2023-02-11] MEDS: HEPARIN NA (PORCINE) 5,000 UNITS/ML 1ML VIAL SQ SCH ×3 (06:30→21:26)
[2023-02-11] MEDS: FUROSEMIDE 20 MG TABLET (FP) PO SCH (10:24)
[2023-02-11] MEDS: PREGABALIN 100 MG CAPSULE PO SCH ×2 (10:24→21:26)
[2023-02-11] MEDS: LOSARTAN POTASSIUM 50 MG TABLET PO SCH (21:26)
[2023-02-12] MEDS: CLINDAMYCIN 900 MG PREMIX IVPB 900 MG/50 ML BAG IVPB SCH (02:16)
[2023-02-12] MEDS: CEFEPIME 2 GM in DEXTROSE 5%-WATER 100 ML IVPB SCH ×2 (06:15)
[2023-02-12] MEDS: HEPARIN NA (PORCINE) 5,000 UNITS/ML 1ML VIAL SQ SCH ×3 (06:16→21:20)
[2023-02-12] MEDS: PREGABALIN 100 MG CAPSULE PO SCH ×2 (09:22→21:19)
[2023-02-12] MEDS: FUROSEMIDE 20 MG TABLET (FP) PO SCH (09:22)
[2023-02-12 10:52] LABS: HEMATOCRIT 37.4 % (32.4-45.2); HEMOGLOBIN 12.5 GM/dL (10.7-15.3); MCH 24.3 pg (25.7-33.7); MCHC 33.5 g/dl (32.0-36.0); MEAN CELL VOLUME 72.5 fl (80-96); MEAN PLT VOLUME 7.4 fl (7.5-11.1); PLATELET COUNT 382 10^3/uL (134-434); RBC 5.16 M/mm3 (3.60-5.2); RDW 16.5 % (11.6-15.6)
[2023-02-12 11:12] LABS: ALBUMIN 3.4 g/dl (3.4-5.0); BLOOD UREA NITROGEN 14.2 mg/dL (7-18); CALCIUM 9.3 mg/dL (8.5-10.1); MAGNESIUM 2.2 mg/dL (1.8-2.4)
[2023-02-12 11:15] LABS: CREATININE 0.9 mg/dL (0.55-1.3)
[2023-02-12 11:17] LABS: BILIRUBIN,TOTAL 0.3 mg/dL (0.2-1); TOT PROT 8.3 g/dl (6.4-8.2)
[2023-02-12] MEDS: LOSARTAN POTASSIUM 50 MG TABLET PO SCH (21:20)
[2023-02-13] MEDS: HEPARIN NA (PORCINE) 5,000 UNITS/ML 1ML VIAL SQ SCH (06:14)
[2023-02-13 09:24] LABS: HEMATOCRIT 37.8 % (32.4-45.2); HEMOGLOBIN 12.1 GM/dL (10.7-15.3); MCH 23.7 pg (25.7-33.7); MCHC 31.9 g/dl (32.0-36.0); MEAN CELL VOLUME 74.1 fl (80-96); MEAN PLT VOLUME 7.6 fl (7.5-11.1); PLATELET COUNT 372 10^3/uL (134-434); RDW 16.5 % (11.6-15.6); WHITE BLOOD COUNT 5.3 K/mm3 (4.0-10.0)
[2023-02-13 09:38] LABS: POTASSIUM 4.7 mmol/L (3.5-5.1)
[2023-02-13 09:47] LABS: BILIRUBIN,TOTAL 0.4 mg/dL (0.2-1)
[2023-02-13 09:50] LABS: ALBUMIN 3.4 g/dl (3.4-5.0); BLOOD UREA NITROGEN 12.5 mg/dL (7-18); CALCIUM 9.4 mg/dL (8.5-10.1); MAGNESIUM 2.2 mg/dL (1.8-2.4)
[2023-02-13 09:53] LABS: CREATININE 0.8 mg/dL (0.55-1.3); PHOSPHOROUS 3.4 mg/dL (2.5-4.9)
[2023-02-13 09:55] LABS: TOT PROT 8.1 g/dl (6.4-8.2)
[2023-02-13] MEDS ORDERED: ENOXAPARIN NA (PORCINE) 40 MG/0.4 ML DISP.SYRIN SQ SCH (10:00)
[2023-02-13] MEDS: PREGABALIN 100 MG CAPSULE PO SCH ×2 (10:16→21:26)
[2023-02-13] MEDS: FUROSEMIDE 20 MG TABLET (FP) PO SCH (10:16)
[2023-02-13] MEDS: ENOXAPARIN NA (PORCINE) 80 MG/0.8 ML DISP.SYRIN SQ SCH ×2 (11:34→21:25)
[2023-02-13] MEDS: LOSARTAN POTASSIUM 50 MG TABLET PO SCH (21:25)
[2023-02-14] MEDS ORDERED: LIDOCAINE HCL 1%, 10 MG/ML (20ML VIAL) ONE ×2 (07:09→08:09)
[2023-02-14] MEDS ORDERED: BUPIVACAINE HCL/PF 0.5% (5MG/ML) 10 ML VIAL ONE ×2 (07:10→08:09)
[2023-02-14] MEDS ORDERED: MIDAZOLAM HCL 2 MG/2 ML SINGLE DOSE VIAL ONE (08:20)
[2023-02-14] MEDS ORDERED: LIDOCAINE HCL 1%, 10 MG/ML (20ML VIAL) NR ONE (08:37)
[2023-02-14] MEDS ORDERED: BUPIVACAINE HCL/PF 0.5% (5MG/ML) 10 ML VIAL IJ ONE (08:37)
[2023-02-14] MEDS ORDERED: IBUPROFEN 600 MG TABLET (FP) PO PRN (09:29)
[2023-02-14] MEDS ORDERED: ALBUTEROL SO4 HFA INHALER IH PRN (09:29)
[2023-02-14] MEDS: FUROSEMIDE 20 MG TABLET (FP) PO SCH (09:51)
[2023-02-14] MEDS ORDERED: PREGABALIN 100 MG CAPSULE PO SCH (10:00)
[2023-02-14 10:11] LABS: HEMATOCRIT 36.8 % (32.4-45.2); MCH 23.7 pg (25.7-33.7); MCHC 32.5 g/dl (32.0-36.0); MEAN PLT VOLUME 7.6 fl (7.5-11.1); PLATELET COUNT 345 10^3/uL (134-434); RBC 5.04 M/mm3 (3.60-5.2); RDW 16.3 % (11.6-15.6); WHITE BLOOD COUNT 5.2 K/mm3 (4.0-10.0)
[2023-02-14 10:37] LABS: POTASSIUM 4.1 mmol/L (3.5-5.1)
[2023-02-14 10:45] LABS: MAGNESIUM 2.1 mg/dL (1.8-2.4)
[2023-02-14 10:47] LABS: BLOOD UREA NITROGEN 11.9 mg/dL (7-18); CREATININE 0.8 mg/dL (0.55-1.3); PHOSPHOROUS 3.2 mg/dL (2.5-4.9)
[2023-02-14 10:49] LABS: ALBUMIN 3.2 g/dl (3.4-5.0); BILIRUBIN,TOTAL 0.4 mg/dL (0.2-1); TOT PROT 7.8 g/dl (6.4-8.2)
[2023-02-14] MEDS ORDERED: RIVAROXABAN 15 MG TABLET PO SCH (11:30)
[2023-02-14] MEDS ORDERED: PIPERACILLIN/TAZOB 3.375 GM 3.375 GM in DEXTROSE 5%-WATER - 50 ML IVPB SCH (14:00)
[2023-02-14] MEDS ORDERED: VANCOMYCIN HCL 1,500 MG in DEXTROSE 5%-WATER - 250 ML IVPB SCH (14:00)
[2023-02-14] MEDS: CEFTRIAXONE 2 GM in DEXTROSE 5%-WATER 100 ML IVPB SCH (14:16)
[2023-02-14] MEDS ORDERED: oxyCODONE HCL 5 MG TABLET PO PRN (16:28)
[2023-02-14] MEDS: LOSARTAN POTASSIUM 50 MG TABLET PO SCH (21:45)
[2023-02-14] MEDS: PREGABALIN 100 MG CAPSULE PO SCH (21:45)
[2023-02-14] MEDS ORDERED: PREGABALIN 75 MG CAPSULE PO SCH (22:00)
[2023-02-15] MEDS ORDERED: INSULIN (NOVOLOG) ASPART 100 UNITS/ML 10ML VIAL ONE (07:44)
[2023-02-15] MEDS ORDERED: INSULIN (LEVEMIR) 100 UNITS/ML UNITS SQ ONE (07:45)
[2023-02-15] MEDS ORDERED: RIVAROXABAN 15 MG TABLET PO SCH (08:00)
[2023-02-15 08:45] LABS: HEMATOCRIT 37.6 % (32.4-45.2); HEMOGLOBIN 11.9 GM/dL (10.7-15.3); MCH 23.7 pg (25.7-33.7); MCHC 31.8 g/dl (32.0-36.0); MEAN CELL VOLUME 74.4 fl (80-96); MEAN PLT VOLUME 7.6 fl (7.5-11.1); PLATELET COUNT 329 10^3/uL (134-434); RBC 5.05 M/mm3 (3.60-5.2); RDW 16.2 % (11.6-15.6); WHITE BLOOD COUNT 5.4 K/mm3 (4.0-10.0)
[2023-02-15 09:04] LABS: POTASSIUM 4.7 mmol/L (3.5-5.1)
[2023-02-15 09:07] LABS: ALBUMIN 3.2 g/dl (3.4-5.0); BLOOD UREA NITROGEN 13.3 mg/dL (7-18); MAGNESIUM 2.2 mg/dL (1.8-2.4)
[2023-02-15 09:10] LABS: CREATININE 0.8 mg/dL (0.55-1.3); PHOSPHOROUS 3.3 mg/dL (2.5-4.9)
[2023-02-15 09:11] LABS: BILIRUBIN,TOTAL 0.4 mg/dL (0.2-1); TOT PROT 7.6 g/dl (6.4-8.2)
[2023-02-15] MEDS: PREGABALIN 100 MG CAPSULE PO SCH ×2 (09:18→22:15)
[2023-02-15] MEDS: CEFTRIAXONE 2 GM in DEXTROSE 5%-WATER 100 ML IVPB SCH (09:18)
[2023-02-15] MEDS: FUROSEMIDE 20 MG TABLET (FP) PO SCH (09:18)
[2023-02-15] MEDS ORDERED: ENOXAPARIN NA (PORCINE) 120 MG/0.8 ML DISP.SYRIN SQ SCH (22:00)
[2023-02-15] MEDS: ENOXAPARIN 100 MG, ENOXAPARIN 40 MG SQ SCH (22:15)
[2023-02-15] MEDS: LOSARTAN POTASSIUM 50 MG TABLET PO SCH (22:15)
[2023-02-16 08:03] LABS: HEMATOCRIT 36.5 % (32.4-45.2); HEMOGLOBIN 11.5 GM/dL (10.7-15.3); MCH 23.5 pg (25.7-33.7); MCHC 31.7 g/dl (32.0-36.0); MEAN CELL VOLUME 74.3 fl (80-96); MEAN PLT VOLUME 7.4 fl (7.5-11.1); PLATELET COUNT 322 10^3/uL (134-434); RBC 4.91 M/mm3 (3.60-5.2); RDW 16.5 % (11.6-15.6)
[2023-02-16 08:17] LABS: INR 1.41 (0.83-1.09); PROTHROMBIN TIME (PATIENT) 16.3 SEC (9.7-13.0)
[2023-02-16 08:23] LABS: POTASSIUM 4.2 mmol/L (3.5-5.1)
[2023-02-16 08:27] LABS: CALCIUM 8.9 mg/dL (8.5-10.1); MAGNESIUM 2.1 mg/dL (1.8-2.4)
[2023-02-16 08:30] LABS: CREATININE 0.9 mg/dL (0.55-1.3); PHOSPHOROUS 4.1 mg/dL (2.5-4.9)
[2023-02-16 08:32] LABS: BILIRUBIN,TOTAL 0.4 mg/dL (0.2-1); TOT PROT 7.4 g/dl (6.4-8.2)
[2023-02-16] MEDS: ENOXAPARIN 100 MG, ENOXAPARIN 40 MG SQ SCH ×2 (09:27→21:16)
[2023-02-16] MEDS: FUROSEMIDE 20 MG TABLET (FP) PO SCH (09:27)
[2023-02-16] MEDS: CEFTRIAXONE 2 GM in DEXTROSE 5%-WATER 100 ML IVPB SCH (09:27)
[2023-02-16] MEDS: PREGABALIN 100 MG CAPSULE PO SCH ×2 (09:27→21:17)
[2023-02-16] MEDS: LOSARTAN POTASSIUM 50 MG TABLET PO SCH (21:17)
[2023-02-17] MEDS: PREGABALIN 100 MG CAPSULE PO SCH ×2 (09:14→22:41)
[2023-02-17] MEDS: FUROSEMIDE 20 MG TABLET (FP) PO SCH (09:15)
[2023-02-17] MEDS: CEFTRIAXONE 2 GM in DEXTROSE 5%-WATER 100 ML IVPB SCH (09:15)
[2023-02-17] MEDS: ENOXAPARIN 100 MG, ENOXAPARIN 40 MG SQ SCH (09:16)
[2023-02-17 09:38] LABS: BASO % 0.9 % (0-2.0); EOS % 3.3 % (0-4.5); HEMATOCRIT 38.6 % (32.4-45.2); HEMOGLOBIN 12.2 GM/dL (10.7-15.3); LYMPH % 22.6 % (8-40); MCH 23.7 pg (25.7-33.7); MCHC 31.7 g/dl (32.0-36.0); MEAN CELL VOLUME 74.7 fl (80-96); MEAN PLT VOLUME 7.7 fl (7.5-11.1); MONO % 8.3 % (3.8-10.2); NEUT % 64.9 % (42.8-82.8); PLATELET COUNT 351 10^3/uL (134-434); RBC 5.17 M/mm3 (3.60-5.2); RDW 16.4 % (11.6-15.6); WHITE BLOOD COUNT 5.4 K/mm3 (4.0-10.0)
[2023-02-17 09:49] LABS: POTASSIUM 3.8 mmol/L (3.5-5.1)
[2023-02-17 09:54] LABS: ALBUMIN 3.2 g/dl (3.4-5.0)
[2023-02-17 09:55] LABS: BLOOD UREA NITROGEN 12.4 mg/dL (7-18)
[2023-02-17 09:56] LABS: CALCIUM 8.9 mg/dL (8.5-10.1)
[2023-02-17 09:58] LABS: CREATININE 0.9 mg/dL (0.55-1.3)
[2023-02-17 09:59] LABS: BILIRUBIN,TOTAL 0.4 mg/dL (0.2-1); TOT PROT 7.7 g/dl (6.4-8.2)
[2023-02-17] MEDS: LOSARTAN POTASSIUM 50 MG TABLET PO SCH (22:41)
[2023-02-18] MEDS: FUROSEMIDE 20 MG TABLET (FP) PO SCH (09:19)
[2023-02-18] MEDS: PREGABALIN 100 MG CAPSULE PO SCH ×2 (09:19→21:32)
[2023-02-18] MEDS: CEFTRIAXONE 2 GM in DEXTROSE 5%-WATER 100 ML IVPB SCH (09:20)
[2023-02-18 10:07] LABS: HEMATOCRIT 39.4 % (32.4-45.2); MCHC 32.8 g/dl (32.0-36.0); MEAN CELL VOLUME 73.1 fl (80-96); MEAN PLT VOLUME 7.8 fl (7.5-11.1); PLATELET COUNT 346 10^3/uL (134-434); RDW 16.6 % (11.6-15.6); WHITE BLOOD COUNT 5.1 K/mm3 (4.0-10.0)
[2023-02-18 10:11] LABS: INR 1.21 (0.83-1.09)
[2023-02-18 10:44] LABS: POTASSIUM 4.6 mmol/L (3.5-5.1)
[2023-02-18 10:52] LABS: ALBUMIN 3.4 g/dl (3.4-5.0); BLOOD UREA NITROGEN 14.9 mg/dL (7-18); CALCIUM 9.3 mg/dL (8.5-10.1); MAGNESIUM 2.2 mg/dL (1.8-2.4)
[2023-02-18 10:55] LABS: CREATININE 0.8 mg/dL (0.55-1.3); PHOSPHOROUS 3.8 mg/dL (2.5-4.9)
[2023-02-18 10:56] LABS: BILIRUBIN,TOTAL 0.4 mg/dL (0.2-1); TOT PROT 8.2 g/dl (6.4-8.2)
[2023-02-18] MEDS ORDERED: GENTAMICIN SO4 80 MG/2 ML VIAL ONE (11:32)
[2023-02-18] MEDS ORDERED: BUPIVACAINE HCL/PF 0.5% (5MG/ML) 10 ML VIAL ONE (11:32)
[2023-02-18] MEDS ORDERED: LIDOCAINE HCL 1%, 10 MG/ML (20ML VIAL) ONE (11:32)
[2023-02-18] MEDS ORDERED: BUPIVACAINE HCL/PF 0.5% (5MG/ML) 10 ML VIAL IJ ONE ×3 (11:36→12:10)
[2023-02-18] MEDS ORDERED: LIDOCAINE HCL 1%, 10 MG/ML (20ML VIAL) NR ONE ×3 (11:36→12:10)
[2023-02-18] MEDS ORDERED: MIDAZOLAM HCL 2 MG/2 ML SINGLE DOSE VIAL ONE ×2 (11:43→12:28)
[2023-02-18] MEDS ORDERED: PROPOFOL 20 ML ONE (11:43)
[2023-02-18] MEDS ORDERED: ONDANSETRON 4 MG/2 ML VIAL IVPUSH PRN ×2 (13:02→13:06)
[2023-02-18] MEDS ORDERED: ALBUTEROL SO4 HFA INHALER IH PRN (13:06)
[2023-02-18] MEDS ORDERED: ACETAMINOPHEN 325 MG TABLET (FP) PO PRN (13:06)
[2023-02-18] MEDS ORDERED: LACTATED RINGERS SOLUTION 1,000 ML IV SCH ×2 (13:15)
[2023-02-18 14:06] LABS: EOS % 5.1 % (0-4.5); HEMOGLOBIN 11.9 GM/dL (10.7-15.3); LYMPH % 25.8 % (8-40); MEAN CELL VOLUME 72.8 fl (80-96); MEAN PLT VOLUME 7.5 fl (7.5-11.1); MONO % 13.2 % (3.8-10.2); NEUT % 54.9 % (42.8-82.8); PLATELET COUNT 299 10^3/uL (134-434); RBC 4.95 M/mm3 (3.60-5.2); RDW 16.9 % (11.6-15.6); WHITE BLOOD COUNT 3.9 K/mm3 (4.0-10.0)
[2023-02-18] MEDS ORDERED: DOCUSATE SODIUM 100 MG CAPSULE (FP) PO PRN (15:29)
[2023-02-18] MEDS ORDERED: RIVAROXABAN 15 MG TABLET PO SCH ×2 (18:00→22:00)
[2023-02-18] MEDS: oxyCODONE HCL 5 MG TABLET PO PRN (18:50)
[2023-02-18] MEDS: LOSARTAN POTASSIUM 50 MG TABLET PO SCH (21:33)
[2023-02-18] MEDS ORDERED: ENOXAPARIN NA (PORCINE) 40 MG/0.4 ML DISP.SYRIN SQ ONE (22:00)
[2023-02-19] MEDS: RIVAROXABAN 15 MG TABLET PO SCH ×2 (08:05→17:46)
[2023-02-19] MEDS: FUROSEMIDE 20 MG TABLET (FP) PO SCH (09:06)
[2023-02-19] MEDS: PREGABALIN 100 MG CAPSULE PO SCH ×2 (09:06→21:16)
[2023-02-19] MEDS: CEFTRIAXONE 2 GM in DEXTROSE 5%-WATER 100 ML IVPB SCH (09:06)
[2023-02-19 09:59] LABS: HEMATOCRIT 37.5 % (32.4-45.2); HEMOGLOBIN 11.9 GM/dL (10.7-15.3); MCH 23.6 pg (25.7-33.7); MCHC 31.8 g/dl (32.0-36.0); MEAN CELL VOLUME 74.3 fl (80-96); MEAN PLT VOLUME 7.9 fl (7.5-11.1); PLATELET COUNT 345 10^3/uL (134-434); RBC 5.04 M/mm3 (3.60-5.2); RDW 16.4 % (11.6-15.6); WHITE BLOOD COUNT 8.6 K/mm3 (4.0-10.0)
[2023-02-19 10:28] LABS: POTASSIUM 3.9 mmol/L (3.5-5.1)
[2023-02-19 10:36] LABS: CALCIUM 9.1 mg/dL (8.5-10.1)
[2023-02-19 10:37] LABS: ALBUMIN 3.2 g/dl (3.4-5.0); BLOOD UREA NITROGEN 17.6 mg/dL (7-18); MAGNESIUM 2.1 mg/dL (1.8-2.4)
[2023-02-19 10:39] LABS: BILIRUBIN,TOTAL 0.4 mg/dL (0.2-1); TOT PROT 7.7 g/dl (6.4-8.2)
[2023-02-19 10:40] LABS: PHOSPHOROUS 2.8 mg/dL (2.5-4.9)
[2023-02-19] MEDS: LOSARTAN POTASSIUM 50 MG TABLET PO SCH (21:16)
[2023-02-20] MEDS: oxyCODONE HCL 5 MG TABLET PO PRN (02:56)
[2023-02-20] MEDS: RIVAROXABAN 15 MG TABLET PO SCH ×2 (08:03→17:00)
[2023-02-20] MEDS: PREGABALIN 100 MG CAPSULE PO SCH ×2 (09:18→20:59)
[2023-02-20] MEDS: CEFTRIAXONE 2 GM in DEXTROSE 5%-WATER 100 ML IVPB SCH (09:18)
[2023-02-20] MEDS: FUROSEMIDE 20 MG TABLET (FP) PO SCH (09:18)
[2023-02-20 10:23] LABS: HEMATOCRIT 40.2 % (32.4-45.2); HEMOGLOBIN 12.9 GM/dL (10.7-15.3); MCH 24.2 pg (25.7-33.7); MCHC 32.1 g/dl (32.0-36.0); MEAN CELL VOLUME 75.4 fl (80-96); MEAN PLT VOLUME 7.9 fl (7.5-11.1); PLATELET COUNT 367 10^3/uL (134-434); RBC 5.33 M/mm3 (3.60-5.2); RDW 16.9 % (11.6-15.6); WHITE BLOOD COUNT 7.9 K/mm3 (4.0-10.0)
[2023-02-20 10:39] LABS: POTASSIUM 3.6 mmol/L (3.5-5.1)
[2023-02-20 10:48] LABS: ALBUMIN 3.6 g/dl (3.4-5.0); PHOSPHOROUS 3.3 mg/dL (2.5-4.9)
[2023-02-20 10:50] LABS: CALCIUM 9.2 mg/dL (8.5-10.1)
[2023-02-20 10:51] LABS: BILIRUBIN,TOTAL 0.4 mg/dL (0.2-1); CREATININE 1.1 mg/dL (0.55-1.3); TOT PROT 8.6 g/dl (6.4-8.2)
[2023-02-20] MEDS: LOSARTAN POTASSIUM 50 MG TABLET PO SCH (20:59)
[2023-02-21] MEDS: oxyCODONE HCL 5 MG TABLET PO PRN (02:03)
[2023-02-21] MEDS: RIVAROXABAN 15 MG TABLET PO SCH ×2 (08:23→17:04)
[2023-02-21] MEDS: CEFTRIAXONE 2 GM in DEXTROSE 5%-WATER 100 ML IVPB SCH (09:02)
[2023-02-21] MEDS: PREGABALIN 100 MG CAPSULE PO SCH ×2 (09:02→22:08)
[2023-02-21] MEDS: FUROSEMIDE 20 MG TABLET (FP) PO SCH (09:02)
[2023-02-21 10:46] LABS: HEMATOCRIT 38.6 % (32.4-45.2); HEMOGLOBIN 12.3 GM/dL (10.7-15.3); MCH 23.9 pg (25.7-33.7); MEAN CELL VOLUME 74.7 fl (80-96); MEAN PLT VOLUME 8.2 fl (7.5-11.1); PLATELET COUNT 233 10^3/uL (134-434); RBC 5.16 M/mm3 (3.60-5.2); RDW 16.5 % (11.6-15.6); WHITE BLOOD COUNT 5.9 K/mm3 (4.0-10.0)
[2023-02-21 11:28] LABS: POTASSIUM 4.2 mmol/L (3.5-5.1)
[2023-02-21 11:39] LABS: ALBUMIN 3.2 g/dl (3.4-5.0); BLOOD UREA NITROGEN 15.2 mg/dL (7-18); MAGNESIUM 2.2 mg/dL (1.8-2.4)
[2023-02-21 11:42] LABS: CREATININE 0.9 mg/dL (0.55-1.3); PHOSPHOROUS 3.3 mg/dL (2.5-4.9)
[2023-02-21 11:43] LABS: BILIRUBIN,TOTAL 0.7 mg/dL (0.2-1); TOT PROT 7.9 g/dl (6.4-8.2)
[2023-02-21] MEDS: LOSARTAN POTASSIUM 50 MG TABLET PO SCH (22:09)
[2023-02-22] MEDS: RIVAROXABAN 15 MG TABLET PO SCH ×2 (08:33→17:34)
[2023-02-22] MEDS: FUROSEMIDE 20 MG TABLET (FP) PO SCH (09:08)
[2023-02-22] MEDS: CEFTRIAXONE 2 GM in DEXTROSE 5%-WATER 100 ML IVPB SCH (09:08)
[2023-02-22] MEDS: PREGABALIN 100 MG CAPSULE PO SCH ×2 (09:08→21:42)
[2023-02-22 11:32] LABS: HEMATOCRIT 39.2 % (32.4-45.2); HEMOGLOBIN 12.9 GM/dL (10.7-15.3); MCH 23.9 pg (25.7-33.7); MCHC 32.8 g/dl (32.0-36.0); MEAN CELL VOLUME 72.9 fl (80-96); MEAN PLT VOLUME 8.1 fl (7.5-11.1); PLATELET COUNT 341 10^3/uL (134-434); RBC 5.38 M/mm3 (3.60-5.2); RDW 16.5 % (11.6-15.6); WHITE BLOOD COUNT 5.4 K/mm3 (4.0-10.0)
[2023-02-22 12:55] LABS: ALBUMIN 3.5 g/dl (3.4-5.0); CALCIUM 9.6 mg/dL (8.5-10.1)
[2023-02-22 12:56] LABS: BLOOD UREA NITROGEN 14.7 mg/dL (7-18)
[2023-02-22 12:59] LABS: CREATININE 0.9 mg/dL (0.55-1.3)
[2023-02-22 13:00] LABS: BILIRUBIN,TOTAL 0.6 mg/dL (0.2-1); TOT PROT 8.4 g/dl (6.4-8.2)
[2023-02-22] MEDS: LOSARTAN POTASSIUM 50 MG TABLET PO SCH (21:42)
[2023-02-23] MEDS: RIVAROXABAN 15 MG TABLET PO SCH ×2 (09:01→17:11)
[2023-02-23] MEDS: FUROSEMIDE 20 MG TABLET (FP) PO SCH (09:02)
[2023-02-23] MEDS: CEFTRIAXONE 2 GM in DEXTROSE 5%-WATER 100 ML IVPB SCH (09:02)
[2023-02-23] MEDS: PREGABALIN 100 MG CAPSULE PO SCH ×2 (09:02→22:24)
[2023-02-23 10:17] VITALS: RESP 18
[2023-02-23] MEDS: LOSARTAN POTASSIUM 50 MG TABLET PO SCH (22:24)
[2023-02-24] MEDS: AMOX TR/POT CLAV 875MG/125MG TABLETS (FP) PO SCH ×2 (08:10→17:29)
[2023-02-24] MEDS: RIVAROXABAN 15 MG TABLET PO SCH ×2 (08:10→17:29)
[2023-02-24] MEDS: FUROSEMIDE 20 MG TABLET (FP) PO SCH (09:02)
[2023-02-24] MEDS: PREGABALIN 100 MG CAPSULE PO SCH ×2 (09:02→21:48)
[2023-02-24] MEDS: LOSARTAN POTASSIUM 50 MG TABLET PO SCH (21:48)
[2023-02-25] MEDS: AMOX TR/POT CLAV 875MG/125MG TABLETS (FP) PO SCH ×2 (09:04→16:43)
[2023-02-25] MEDS: PREGABALIN 100 MG CAPSULE PO SCH (09:10)
[2023-02-25] MEDS: RIVAROXABAN 15 MG TABLET PO SCH ×2 (09:10→17:13)
[2023-02-25] MEDS: FUROSEMIDE 20 MG TABLET (FP) PO SCH (09:10)
[2023-02-25 15:23] VITALS: BP 150/92; PULSE 68; TEMP 97.5
== END 2023-02-25 18:00 | DRG 478 ==
LOC: JER 12:06 → JERBED 16:27 → J6S 02-09 04:00
PROVIDERS: ADMIT Internal Medicine; ATTEND Internal Medicine
PROC: 0QBR3ZX Excision of Left Toe Phalanx, Percutaneous Approach, Diagnostic (ICD-10-PCS; principal; 2023-02-14 08:30)
PROC: 0Y6S0Z0 Detachment at Left 2nd Toe, Complete, Open Approach (ICD-10-PCS; 2023-02-18)
DX: M86.8X7 Other osteomyelitis, ankle and foot (principal); I82.412 Acute embolism and thrombosis of left femoral vein; L97.528 Non-pressure chronic ulcer of other part of left foot with other specified severity; Z68.44 Body mass index [BMI] 60.0-69.9, adult; I82.432 Acute embolism and thrombosis of left popliteal vein; B95.7 Other staphylococcus as the cause of diseases classified elsewhere; B96.3 Hemophilus influenzae [H. influenzae] as the cause of diseases classified elsewhere; I10 Essential (primary) hypertension; E66.01 Morbid (severe) obesity due to excess calories; J45.909 Unspecified asthma, uncomplicated; K76.0 Fatty (change of) liver, not elsewhere classified; G62.9 Polyneuropathy, unspecified; G47.33 Obstructive sleep apnea (adult) (pediatric); L03.032 Cellulitis of left toe; E78.5 Hyperlipidemia, unspecified; R73.03 Prediabetes; E53.1 Pyridoxine deficiency; Z89.422 Acquired absence of other left toe(s); Z98.84 Bariatric surgery status
CPT/HCPCS: 36415; 73630-TC-LT; 80053; 82607; 82728; 82746; 83036; 83540; 83550; 83735; 84100; 85025; 85027; 85610; 85651; 85730; 86140; 87040; 87070; 87075; 87077; 87186; 87205; 87635; 88305-TC; 88311-TC; 93926-TC; 93971; 94760; 97116-GP; 97162-GP; 99285-25; J1644